=== PATIENT | female | born 1990 | race Caucasian/White ===

== ENCOUNTER 2018-11-28 09:19 | Emergency (ER) | payer BC, MEDICAID ==
[~2018-11-28] VITALS: Ht 154.9 cm; Wt 140.8 kg
[~2018-11-28 09:19] MED LIST: NONE PER PT
[2018-11-28 09:21] VITALS: BP 138/89
[2018-11-28] MEDS ORDERED: IBUPROFEN 200 MG TABLET PO ONE (10:30)
[2018-11-28] MEDS ORDERED: IBUPROFEN 200 MG TABLET ONE (11:10)
== END 2018-11-28 11:22 | disposition home or self-care (01) ==
LOC: ED 11:14
DX: J02.9 Acute pharyngitis, unspecified (principal); Z90.49 Acquired absence of other specified parts of digestive tract
CPT/HCPCS: 99282